=== PATIENT | female | born 1995 | race Hispanic/Latino ===

== ENCOUNTER 2018-04-03 11:11 | Emergency (ER) | payer OTHER ==
[2018-04-03 11:51] LABS: Urine Bacteria >50 /HPF (<20); Urine Culture Reflex Order REFLEXED; Urine RBC <5 /HPF (NONE SEEN)
[2018-04-03] MEDS ORDERED: NA CHLORIDE 0.9% 1,000 ML ONE (11:53)
[2018-04-03 12:08] LABS: Absolute Lymphocytes (CBC) 1.5 K/uL (0.7-4.9); Absolute Monocytes 0.8 K/uL (0.1-1.3); Basophils % 0.3 % (0-1.3); Eosinophils % 0.1 % (0-4.4); Hematocrit 44.3 % (36.0-45.0); Lymphocytes % 10.6 % (15.3-44.8); MCH 33.1 pg (27.0-35.0); MPV 8.1 fL (7.6-11.3); Monocytes % 5.6 % (3.3-12.3); RBC Red Blood Cell Count 4.57 M/uL (3.86-4.86)
[2018-04-03 12:20] LABS: Albumin 4.3 g/dL (3.4-5.0); Bilirubin Direct 0.2 mg/dL (0-0.2); Bilirubin Total 0.7 mg/dL (0.2-1.0); Potassium 3.8 mmol/L (3.5-5.1); Protein, Total 8.2 g/dL (6.4-8.2)
--- NOTE | 2018-04-03 12:56 | RAD REPORT ---
EXAM DESCRIPTION: CTAbdomen Pelvis W Contrast - 04/03/2018 12:40 pm CLINICAL HISTORY: Abdominal pain. FLANK PAIN COMPARISON: CT ABD PELVIS W CONTRAST dated 08/03/2011 TECHNIQUE: Biphasic CT imaging of the abdomen and pelvis was performed with 100 ml non-ionic IV cont rast. All CT scans are performed using dose optimization technique as appropriate and may include automated exposure control or mA/KV adjustment according to patient size. FINDINGS: The lung bases are clear. The liver, spleen, pancreas, adrenal glands and kidneys are within normal limits. No bowel obstruction, free air, free fluid or abscess. The appendix is normal. No evidence of signi ficant lymphadenopathy. No suspicious bony findings. IUD noted in the uterus. Prominent pelvic veins are noted on the left with enlargement of left gonada l vein. IMPRESSION: No acute intra-abdominal or pelvic finding. Prominent pelvic veins on the left can be seen in pelvic congestion syndrome.
[2018-04-03] MEDS ORDERED: CEFTRIAXONE/SWI 1gm 1 GM/10 ML SYR ONE (13:21)
--- NOTE | 2018-04-03 13:30 | ER ---
Nurse's Notes [facility] Name: Danielle Ahn Age: 22 yrs Sex: Female : 1995 Arrival Date: 04/03/2018 Time: 11:14 Bed 13 Private MD: Diagnosis: Urinary tract infection, site not specified Presentation: 04/03 11:24 Presenting complaint: Patient states: last night i started having R flank pain , i knew hj i have kidney infection coz i usually have it; denies fever and chills; denies N/V;. Transition of care: patient was not received from another setting of care. Onset of symptoms was April 03, 2018. Risk Assessment: Do you want to hurt yourself or someone else? Patient reports no desire to harm self or others. Initial Sepsis Screen: Does the patient meet any 2 criteria? No. Patient's initial sepsis screen is negative. Does the patient have a suspected source of infection? No. Patient's initial sepsis screen is negative. Care prior to arrival: None. 11:24 Method Of Arrival: Ambulatory 11:24 Acuity: EVELIO 4 Triage Assessment: 11:26 General: Appears in no apparent distress. uncomfortable, Behavior is calm, cooperative, hj appropriate for age. Pain: Complains of pain in R flank. Musculoskeletal: Circulation, motion, and sensation intact. Capillary refill < 3 seconds. 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 - Social history:: Smoking status: Patient/guardian denies using tobacco, Patient uses alcohol, occasionally. - Ebola Screening: : Patient negative for fever greater than or equal to 101.5 degrees Fahrenheit, and additional compatible Ebola Virus Disease symptoms Patient denies exposure to infectious person Patient denies travel to an Ebola-affected area in the 21 days before illness onset. Screenin:26 Abuse screen: Denies threats or abuse. Denies injuries from another. Nutritional hj screening: No deficits noted. Tuberculosis screening: No symptoms or risk factors identified. Fall Risk None identified. Assessment: 11:26 General: Appears in no apparent distress. uncomfortable, slender, Behavior is calm, hj cooperative, appropriate for age. Pain: Complains of pain in R flank, R lower abdomen. Neuro: Level of Consciousness is awake, alert, obeys commands, Oriented to person, place, time, situation, Appropriate for age. Cardiovascular: Capillary refill < 3 seconds Patient's skin is warm and dry. Respiratory: Airway is patent Respiratory effort is even, unlabored, Respiratory pattern is regular, symmetrical. GI: Reports lower abdominal pain. : Reports burning with urination. EENT: No signs and/or symptoms were reported regarding the EENT system. Derm: No signs and/or symptoms reported regarding the dermatologic system. Musculoskeletal: No signs and/or symptoms reported regarding the musculoskeletal system. 12:13 Reassessment: awaiting CT:. hj 12:34 Reassessment: wheeled to CT;. Vital Signs: 11:27 BP 121 / 65; Pulse 109; Resp 18; Temp 99.0(O); Pulse Ox 100% ; Weight 51.26 kg; Height 5 ft. 2 in. (157.48 cm); Pain 7/10; 13:00 BP 107 / 62; Pulse 81; Resp 18; Pulse Ox 99% on R/A; hj 11:27 Body Mass Index 20.67 (51.26 kg, 157.48 cm) ED Course: 11:14 Patient arrived in ED. tw3 11:18 Almas Goetz, RN is Primary Nurse. hj 11:20 Urine collected: clean catch specimen, clear, nichol colored, Amount Voided: 120mL. jp3 11:25 Triage completed. hj 11:27 Arm band placed on right wrist. hj 11:27 Patient has correct armband on for positive identification. Bed in low position. Call light in reach. Side rails up X 1. 11:28 Quinn Foy NP is PHCP. pm1 11:28 Juan Garnica MD is Attending Physician. pm1 11:38 Urine Culture Sent. jp3 11:38 Urine Microscopic Only Sent. jp3 11:44 Radiology exam delayed due to lab results not completed at this time. (BUN/Creatinine) vr test not completed at this time. 11:45 Initial lab(s) drawn, by me, sent to lab. jp3 11:52 Inserted saline lock: 22 gauge in right antecubital area, using aseptic technique. jp3 Blood collected. 11:52 Urine Culture Sent. jp3 11:52 CBC with Diff Sent. jp3 11:52 Basic Metabolic Panel Sent. jp3 11:52 Creatinine for Radiology Sent. jp3 11:52 Hepatic Function Sent. jp3 11:52 Lipase Sent. jp3 12:20 Radiology exam delayed due to lab results not completed at this time. (BUN/Creatinine). vr 12:27 Radiology exam delayed due to test not completed at this time. vr 12:[address] via wheelchair. vr 12:41 CT completed. Patient tolerated procedure well. Patient moved back from CT. vr 12:41 CT Abd/Pelvis - W/Contrast: IV contrast only In Process Unspecified. EDMS 13:35 No provider procedures requiring assistance completed. IV discontinued, intact, hj bleeding controlled, No redness/swelling at site. Pressure dressing applied. Administered Medications: 11:49 Drug: NS 0.9% 1000 ml Route: IV; Rate: 1000 ml; Site: right antecubital; hj 13:00 Follow up: IV Status: Completed infusion; IV Intake: 1000ml hj 13:09 Drug: Rocephin 1 grams Route: IV; Rate: calculated rate; Site: right antecubital; hj 13:37 Follow up: IV Status: Completed infusion hj Intake: 13:00 IV: 1000ml; Total: 1000ml. Outcome: 13:30 Discharge ordered by MD. pm1 13:36 Discharged to home ambulatory. 13:36 Condition: stable 13:36 Discharge instructions given to patient, Instructed on discharge instructions, follow up and referral plans. medication usage, Demonstrated understanding of instructions, follow-up care, medications, Prescriptions given X 2. 13:43 Patient left the ED. hj Addendum: 04/06/2018 07:16 Addendum: Culture Results: Positive urine culture. No further action required. Bacteria i w sensitive to prescribed antibiotic. Signatures: Dispatcher [employer] EDMS Julia Jimenez RN RN iw Davis, Victoria vr Almas Goetz RN RN hj Marinas, Patrick, ETHAN BLADDER CHANGER pm1 Jaylen, Blank tw3 Walker Freeman jp3 Corrections: (The following items were deleted from the chart) 04/03 13:37 13:36 Discharge instructions given to patient, Instructed on discharge instructions, hj follow up and referral plans. medication usage, Demonstrated understanding of instructions, follow-up care, medications, hj
--- NOTE | 2018-04-03 13:31 | EDPHYS ---
Physician Documentation [facility] Name: Danielle Ahn Age: 22 yrs Sex: Female : 1995 Arrival Date: 04/03/2018 Time: 11:14 Bed 13 Private MD: ED Physician Juan Garnica HPI: 04/03 12:00 This 22 yrs old Female presents to ER via Ambulatory with complaints of Back pm1 Pain. 12:00 The patient presents with pain that is acute. The symptoms are located in the right low pm1 back. Onset: The symptoms/episode began/occurred last night. The pain radiates to the right lower quadrant. Associated signs and symptoms: Pertinent positives: abdominal pain, Pertinent negatives: chest pain, dysuria, fever, headache, nausea, vomiting, Diarrhea. The problem was sustained Foul odor urine. Believes that she has a UTI. Modifying factors: The patient symptoms are alleviated by nothing, the patient symptoms are aggravated by nothing. Severity of symptoms: in the emergency department the symptoms are actually worse. The patient has experienced similar episodes in the past, a few times. 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 - Social history:: Smoking status: Patient/guardian denies using tobacco, Patient uses alcohol, occasionally. - Ebola Screening: : Patient negative for fever greater than or equal to 101.5 degrees Fahrenheit, and additional compatible Ebola Virus Disease symptoms Patient denies exposure to infectious person Patient denies travel to an Ebola-affected area in the 21 days before illness onset. ROS: 12:00 Constitutional: Negative for fever, chills, and weight loss, Eyes: Negative for injury, pm1 pain, redness, and discharge, ENT: Negative for injury, pain, and discharge, Neck: Negative for injury, pain, and swelling, Cardiovascular: Negative for chest pain, palpitations, and edema, Respiratory: Negative for shortness of breath, cough, wheezing, and pleuritic chest pain. 12:00 : Negative for injury, bleeding, discharge, and swelling, MS/Extremity: Negative for injury and deformity, Skin: Negative for injury, rash, and discoloration. 12:00 Neuro: Negative for headache, weakness, numbness, tingling, and seizure. 12:00 Abdomen/GI: Positive for abdominal pain, of the right lower quadrant, Negative for nausea, vomiting, and diarrhea. 12:00 Back: Positive for flank pain, on the right. Exam: 12:00 Constitutional: This is a well developed, well nourished patient who is awake, alert, pm1 and in no acute distress. Head/Face: Normocephalic, atraumatic. Eyes: Pupils equal round and reactive to light, extra-ocular motions intact. Lids and lashes normal. Conjunctiva and sclera are non-icteric and not injected. Cornea within normal limits. Periorbital areas with no swelling, redness, or edema. ENT: Nares patent. No nasal discharge, no septal abnormalities noted. Tympanic membranes are normal and external auditory canals are clear. Oropharynx with no redness, swelling, or masses, exudates, or evidence of obstruction, uvula midline. Mucous membranes moist. Neck: Trachea midline, no thyromegaly or masses palpated, and no cervical lymphadenopathy. Supple, full range of motion without nuchal rigidity, or vertebral point tenderness. No Meningismus. Chest/axilla: Normal chest wall appearance and motion. Nontender with no deformity. No lesions are appreciated. Cardiovascular: Regular rate and rhythm with a normal S1 and S2. No gallops, murmurs, or rubs. Normal PMI, no JVD. No pulse deficits. Respiratory: Lungs have equal breath sounds bilaterally, clear to auscultation and percussion. No rales, rhonchi or wheezes noted. No increased work of breathing, no retractions or nasal flaring. 12:00 Skin: Warm, dry with normal turgor. Normal color with no rashes, no lesions, and no evidence of cellulitis. MS/ Extremity: Pulses equal, no cyanosis. Neurovascular intact. Full, normal range of motion. 12:00 Abdomen/GI: Inspection: abdomen appears normal, Bowel sounds: normal, Palpation: soft, mild abdominal tenderness, in the right lower quadrant. 12:00 Back: pain, that is mild, of the right low back, normal spinal alignment noted. 12:00 Neuro: Orientation: is normal, Motor: is normal, moves all fours, Sensation: is normal, no obvious gross deficits. Vital Signs: 11:27 BP 121 / 65; Pulse 109; Resp 18; Temp 99.0(O); Pulse Ox 100% ; Weight 51.26 kg; Height 5 ft. 2 in. (157.48 cm); Pain 7/10; 13:00 BP 107 / 62; Pulse 81; Resp 18; Pulse Ox 99% on R/A; hj 11:27 Body Mass Index 20.67 (51.26 kg, 157.48 cm) MDM: 11:29 Patient medically screened. pm1 13:29 Data reviewed: vital signs. Data interpreted: Pulse oximetry: on room air is 99 %. pm1 Interpretation: normal. Counseling: I had a detailed discussion with the patient and/or guardian regarding: the historical points, exam findings, and any diagnostic results supporting the discharge/admit diagnosis, lab results, radiology results, the need for outpatient follow up, to return to the emergency department if symptoms worsen or persist or if there are any questions or concerns that arise at home. 04/03 11:37 Order name: Basic Metabolic Panel; Complete Time: 13:08 pm1 04/03 11:37 Order name: CBC with Diff; Complete Time: 13:08 pm1 04/03 11:37 Order name: Creatinine for Radiology; Complete Time: 13:08 pm1 04/03 11:37 Order name: Hepatic Function; Complete Time: 13:08 pm1 04/03 11:37 Order name: Lipase; Complete Time: 13:08 pm1 04/03 11:37 Order name: Urine Microscopic Only; Complete Time: 11:52 pm1 04/03 11:18 Order name: Urine Dipstick-Ancillary (obtain specimen); Complete Time: 11:38 04/03 11:18 Order name: Urine Test (obtain specimen); Complete Time: 11:38 04/03 11:37 Order name: CT Abd/Pelvis - W/Contrast: IV contrast only; Complete Time: 13:08 pm1 04/03 11:37 Order name: Urine Culture pm1 04/03 11:41 Order name: Urine Dipstick--Ancillary (enter results) eb 04/03 11:41 Order name: Urine --Ancillary (enter results) 04/03 11:37 Order name: IV Saline Lock; Complete Time: 11:49 pm1 04/03 11:37 Order name: Labs collected and sent; Complete Time: 11:50 pm1 Administered Medications: 11:49 Drug: NS 0.9% 1000 ml Route: IV; Rate: 1000 ml; Site: right antecubital; hj 13:00 Follow up: IV Status: Completed infusion; IV Intake: 1000ml hj 13:09 Drug: Rocephin 1 grams Route: IV; Rate: calculated rate; Site: right antecubital; hj 13:37 Follow up: IV Status: Completed infusion hj Disposition: 04/04 09:52 Co-signature as Attending Physician, Juan Garnica MD. Disposition: 04/03/18 13:30 Discharged to Home. Impression: Urinary tract infection, site not specified. - Condition is Stable. - Discharge Instructions: Urinary Tract Infection, Adult. - Prescriptions for Bactrim DS 800- 160 mg Oral Tablet - take 1 tablet by ORAL route every 12 hours for 10 days; 20 tablet. Tylenol- Codeine #3 300-30 mg Oral Tablet - take 2 tablets by ORAL route every 6 hours As needed; 20 tablet. - Medication Reconciliation Form, Thank You Letter, Antibiotic Education, Prescription Opioid Use form. - Follow up: Emergency Department; When: As needed; Reason: Worsening of condition. Follow up: Private Physician; When: 2 - 3 days; Reason: Recheck today's complaints, Continuance of care, Re-evaluation by your physician. - Problem is new. - Symptoms have improved. Signatures: Dispatcher [employer] EDMS Almas Goetz RN RN hj Quinn Foy, BOAT WRAPPER BOAT WRAPPER pm1 Juan Garnica MD MD Corrections: (The following items were deleted from the chart) 04/03 13:43 13:30 04/03/2018 13:30 Discharged to Home. Impression: Urinary tract infection, site hj not specified. Condition is Stable. Forms are Medication Reconciliation Form, Thank You Letter, Antibiotic Education, Prescription Opioid Use. Follow up: Emergency Department; When: As needed; Reason: Worsening of condition. Follow up: Private Physician; When: 2 - 3 days; Reason: Recheck today's complaints, Continuance of care, Re-evaluation by your physician. Problem is new. Symptoms have improved. pm1
[2018-04-03 13:54] VITALS: TEMP 99
[2018-04-03 13:55] VITALS: BP 107/62; O2SAT 99
[2018-04-03 14:26] LABS: Urine Blood TRACE (NEG); Urine Glucose NEGATIVE (NEG); Urine Protein 2+ (NEG); Urine Specific Gravity 1.015 (1.005-1.030); Urine pH 8.5 (5.0-7.0)
== END 2018-04-03 13:43 | disposition home or self-care (01) ==
LOC: ER 11:11
DX: N39.0 Urinary tract infection, site not specified (principal)
CPT/HCPCS: 36415; 74177; 80048; 80076; 81003; 81015; 81025; 83690; 85025; 87077; 87086; 87088; 87186; 96361; 96365; 99284; J0696; J7030; Q9967

== ENCOUNTER 2021-08-23 08:17 | Emergency (ER) | payer OTHER ==
--- OUTSIDE RECORDS SUMMARY | 2021-08-23 08:22 | XMS REPORT | Continuity of Care Document ---
:[address] [facility] t Address [address] [place] [address] Care Team Providers Name Role Phone Asif Allen Attending Clinician Unavailable PEDRITO LOBO Attending Clinician Unavailable Pedrito Lobo MD Attending Clinician Doctor Unassigned, Name Attending Clinician Unavailable Bela YANEZ Attending Clinician BELA Attending Clinician Unavailable Lucía WETZEL Attending Clinician Payers Payer Name Policy Type Policy Number Effective Date Expiration Date Mario BLISS II [id number] 2015 00:00:00 Problems Condition Condition Condition Status Onset Resolution Last Treating Co mments Source Name Details Category Date Date Treatment Clinician Date Presence Presence Disease Active Unive rs of 52 mg of 52 mg 1-11 ity of [place] trel-relea trel-relea 00 Me dical sing sing Branch intrauteri intrauteri ne device ne device (IUD) (IUD) Hemangioma Hemangioma Disease Active U nivers , genital , genital 8- ity of 00:00: [place] 00 Medical Branch Abscess of Abscess of Disease Active Overview : Univers vulva vulva 5-03 Added ity of 00:00: automatic [place] 00 ally from Medical request Branch for surgery [id number] Labial Labial Disease Active Overview: [facility] abscess abscess 5-02 Recurrent ity o f 00:00: left [place] 00 sided Medical labial Branch abscess s/p I&D twice. Molluscum Molluscum Disease Active Overview: [facility] contagiosu contagiosu 4-September 02, ity of asif gold 00:00: 2019 - [place] 00 Vulvar Medical molluscm Branch contagios um s/p Zymaderm with resolutio n Vulvar Vulvar Disease Active Overview: [facility] ulcer ulcer 3-05 Resolved ity of 00:00: spontaneo 00 usly. HSV Medical testing Branch negative. Allergies, Adverse Reactions, Alerts Allergy Allergy Status Severity Reaction(s) Onset Inactive Treating Comm ents Source Name Type Date Date Clinician NO KNOWN Drug Active [facility] ALLERGIE Class ity of S [facility] Social History Social Habit Start Date Stop Date Quantity Comments Source Exposure to Not sure [facility] SARS-CoV-2 [facility] (event) [place] Sex Assigned At Universit y of [facility] Alcohol intake 2020-05-28 2020-05-28 Current drinker Unive rsity of 00:00:00 00:00:00 of alcohol [facility] (finding) Branch Tobacco use and 2020-05-28 2020-05-28 Never used Universit y of exposure 00:00:00 00:00:00 [facility] Alcohol Comment 2018-04-28 2018-04-28 socially Universit y of 00:00:00 00:00:00 [facility] Smoking Status Start Date Stop Date Source Never smoker [facility] [place] Medications Ordered Filled Start Stop Current Ordering Indication Dosage Frequency Signature Comments Components Source Medication Medication Date Date Medication? Clinician (SIG) Name Name levonorgest 2020- No 1{devic Un natty reL 05-29 e} ity of (MIRENA) 00:15: 23:10 [place] IUD 1 00 :00 Police Aide Branch levonorgest 2020- No 1{devic 1 Device, Univers reL 05-29 e} Intrauteri ity of (MIRENA) 00:15: 23:10 ne, ONCE, Sukumar as IUD 1 00 :00 1 dose, Police Aide Mon Branch 05/28/20 at 1815, Routine levonorgest 2020- No 1{devic Un natty reL 05-29 e} ity of (MIRENA) 00:15: 23:10 [place] IUD 1 00 :00 Police [employer] Branch levonorgest 2020- No 1{devic 1 Device, Univers reL 05-29 e} Intrauteri ity of (MIRENA) 00:15: 23:10 ne, ONCE, [place] as IUD 1 00 :00 1 dose, Police Aide Randall Lyons 05/28/20 at 1815, Routine miSOPROStoL 2019-05 Yes Take one Un natty 200 mcg 2-07 tablet ity of tablet 00:00: night [place] 00 before Medical procedure, Branch then take one tablet morning of procedure miSOPROStoL 2020- Yes Take one Un natty 200 mcg 2-07 tablet ity of tablet 00:00: night [place] 00 before Medical procedure, Branch then take one tablet morning of procedure miSOPROStoL 2020- Yes Take one Un natty 200 mcg 2-07 tablet ity of tablet 00:00: night [place] 00 before Medical procedure, Branch then take one tablet morning of procedure miSOPROStoL 2019- Yes Take one Un natty 200 mcg 2-07 tablet ity of tablet 00:00: night [place] 00 before Medical procedure, Branch then take one tablet morning of procedure miSOPROStoL 2020- Yes Take one Un natty 200 mcg 2-07 tablet ity of tablet 00:00: night [place] 00 before Medical procedure, Branch then take one tablet morning of procedure miSOPROStoL 2020- Yes Take one Un natty 200 mcg 2-07 tablet ity of tablet 00:00: night [place] 00 before Medical procedure, Branch then take one tablet morning of procedure miSOPROStoL 2020- Yes Take one Un natty 200 mcg 2-07 tablet ity of tablet 00:00: night [place] 00 before Medical procedure, Branch then take one tablet morning of procedure Omeprazole Omeprazole 2019- Yes Donnell [address] [facility] 01-16 [facility] 30 minutes [facility] 00[facility] before [facility] morning l meal Outpat[facility] Clinics levonorgest Yes 1{devic 1 Device Univers rel 8-22 e} by ity of (MIRENA) 20 13:22: Intrauteri [place] mcg/24 hr 41 ne route Medica l (5 years) once now. Branc h IUD levonorgest 2019-0 Yes 1{devic 1 Device Univers rel 8-22 e} by ity of (MIRENA) 20 13:22: Intrauteri [place] mcg/24 hr 41 ne route Medica l (5 years) once now. Branc h IUD levonorgest 2019-0 Yes 1{devic 1 Device Univers rel 8-22 e} by ity of (MIRENA) 20 13:22: Intrauteri [place] mcg/24 hr 41 ne route Medica l (5 years) once now. Branc h IUD levonorgest 2019-0 Yes 1{devic 1 Device Univers rel 8-22 e} by ity of (MIRENA) 20 13:22: Intrauteri [place] mcg/24 hr 41 ne route Medica l (5 years) once now. Branc h IUD levonorgest 2019-0 Yes 1{devic 1 Device Univers rel 8-22 e} by ity of (MIRENA) 20 13:22: Intrauteri [place] mcg/24 hr 41 ne route Medica l (5 years) once now. Branc h IUD levonorgest 2019-0 Yes 1{devic 1 Device Univers rel 8-22 e} by ity of (MIRENA) 20 13:22: Intrauteri [place] mcg/24 hr 41 ne route Medica l (5 years) once now. Branc h IUD levonorgest 2019-0 Yes 1{devic 1 Device Univers rel 8-22 e} by ity of (MIRENA) 20 13:22: Intrauteri [place] mcg/24 hr 41 ne route Medica l (5 years) once now. Branc h IUD levonorgest 2019-0 Yes 1{devic 1 Device Univers rel 8-22 e} by ity of (MIRENA) 20 13:22: Intrauteri [place] mcg/24 hr 41 ne route Medica l (5 years) once now. Branc h IUD levonorgest 2019-0 Yes 1{devic 1 Device Univers rel 8-22 e} by ity of (MIRENA) 20 13:22: Intrauteri [place] mcg/24 hr 41 ne route Medica l (5 years) once now. Branc h IUD levonorgest 2019-0 Yes 1{devic 1 Device Univers rel 8-22 e} by ity of (MIRENA) 20 13:22: Intrauteri [place] mcg/24 hr 41 ne route Medica l (5 years) once now. Branc h IUD levonorgest Yes 1{devic 1 Device Univers rel 8-22 e} by ity of (MIRENA) 20 13:22: Intrauteri [place] mcg/24 hr 41 ne route Medica l (5 years) once now. Branc h IUD levonorgest Yes 1{devic 1 Device Univers rel 8-22 e} by ity of (MIRENA) 20 13:22: Intrauteri [place] mcg/24 hr 41 ne route Medica l (5 years) once now. Branc h IUD ibuprofen Yes [id number] 800mg Take 1 Univers 800 mg 5-17 tablet by ity of tablet 00:00: mouth [place] 00 every 8 Medical (eight) Branch hours as needed for Temp > 38.5 C (PAIN). ibuprofen 2019- No [id number] 800mg Take 1 Univers 800 mg 5-17 07-30 tablet by ity of tablet 00:00: 00:00 mouth [place] 00 :00 every 8 Medical (eight) Branch hours as needed for Temp > 38.5 C (PAIN). ibuprofen 2019- No [id number] 800mg Take 1 Univers 800 mg 5-17 07-30 tablet by ity of tablet 00:00: 00:00 mouth [place] 00 :00 every 8 Medical (eight) Branch hours as needed for Temp > 38.5 C (PAIN). levonorgest Yes 1{devic 1 Device Univers rel 5-06 e} by ity of (MIRENA) 20 20:43: Intrauteri [place] mcg/24 hr 52 ne route Medica l (5 years) once now. Branc h IUD levonorgest 2018- Yes 1{devic 1 Device Univers rel 5-06 e} by ity of (MIRENA) 20 20:43: Intrauteri [place] mcg/24 hr 52 ne route Medica l (5 years) once now. Branc h IUD levonorgest 2018-0 Yes 1{devic 1 Device Univers rel 5-06 e} by ity of (MIRENA) 20 20:43: Intrauteri [place] mcg/24 hr 52 ne route Medica l (5 years) once now. Branc h IUD amoxicillin 2018- Yes [id number] 1{tbl} Take 1 Univers -clavulanat 5-02 tablet by ity of e 00:00: mouth 2 [place] (AUGMENTIN) 00 (two) Medical 875-125 mg times Branch per tablet daily. amoxicillin 2019- No [id number] 1{tbl} Take 1 Univers -clavulanat 5-02 07-30 tablet by it y of e 00:00: 00:00 mouth 2 [place] (AUGMENTIN) 00 :00 (two) Medical 875-125 mg times Branch per tablet daily. amoxicillin 2019- No [id number] 1{tbl} Take 1 Univers -clavulanat 5-02 07-30 tablet by it y of e 00:00: 00:00 mouth 2 [place] (AUGMENTIN) 00 :00 (two) Medical 875-125 mg times Branch per tablet daily. lidocaine-p 2019 Yes [id number] Apply to Univers rilocaine 3-05 affected ity of 2.5-2.5 % 00:00: [place] 2-3 [place] cream 00 times a Medical day as Branch needed lidocaine-p 2019- Yes [id number] Apply to Univers rilocaine 3-05 affected ity of 2.5-2.5 % 00:00: [place] 2-3 [place] cream 00 times a Medical day as Branch needed lidocaine-p 2019- Yes [id number] Apply to Univers rilocaine 3-05 affected ity of 2.5-2.5 % 00:00[place] 2-3 [place] cream 00 times a Medical day as Branch needed lidocaine-p 2019- 2019- No [id number] Apply to Univers rilocaine 3-05 - affected ity o f 2.5-2.5 % 00:00: 00:00 area 2-3 [place] as cream 00 :00 times a Medical day as Branch needed lidocaine-p 2019- 2019- No [id number] Apply to Univers rilocaine 3-05 - affected ity o f 2.5-2.5 % 00:00: 00:00 area 2-3 Sukumar as cream 00 :00 times a Medical day as Branch needed Tylenol Tylenol Yes Donnell not [facility] Cold Cold [place] defined [facility] Advil Advil Yes Donnell not [facility] Cold/Sinus Cold/Sinus [facility] defined [facility] NyQuil NyQuil Yes Donnell not [facility] defined [facility] Vanacof DM Vanacof DM Yes Donnell [address] [facility] Vicks Vapor Vicks Vapor Yes Donnell not [facility] defined [facility] DayQuil DayQuil Yes Donnell not [facility] Multi-Sympt Multi-Sympt [place] defined [facility] Vital Signs Vital Name Observation Time Observation Value Comments Source Heart rate 2020-05-28 21:45:00 85 /min [facility] Body temperature 2020-05-28 21:45:00 36.78 [facility] Respiratory rate 2020-05-28 21:45:00 16 /min [facility] Body height 2020-05-28 21:45:00 157.5 cm [facility] Body weight 2020-05-28 21:45:00 58.423 kg [facility] BMI 2020-05-28 21:45:00 23.56 kg/m2 [facility] Systolic blood 2020-05-28 21:45:00 116 mm[Hg] Univer sity of pressure [facility] Diastolic blood 2020-05-28 21:45:00 76 mm[Hg] Unive rsity of pressure [facility] Systolic blood 2019-11-18 18:45:00 109 mm[Hg] Univer sity of pressure [facility] Diastolic blood 2019-11-18 18:45:00 66 mm[Hg] Unive rsity of pressure [facility] Heart rate 2019-11-18 18:45:00 91 /min [facility] Body temperature 2019-11-18 18:45:00 36.78 [facility] Respiratory rate 2019-11-18 18:45:00 18 /min [facility] Body height 2019-11-18 18:45:00 157.5 cm [facility] Body weight 2019-11-18 18:45:00 56.246 kg [facility] BMI 2019-11-18 18:45:00 22.68 kg/m2 [facility] Systolic blood 2019-11-18 18:45:00 109 mm[Hg] Univer sity of pressure [facility] Diastolic blood 2019-11-18 18:45:00 66 mm[Hg] Unive rsity of pressure [facility] Heart rate 2019-11-18 18:45:00 91 /min [facility] Body temperature 2019-11-18 18:45:00 36.78 [facility]nes [facility] [place] [facility] Respiratory rate 2019-11-18 18:45:00 18 /min [facility] Body height 2019-11-18 18:45:00 157.5 cm [facility] Body weight 2019-11-18 18:45:00 56.246 kg [facility] BMI 2019-11-18 18:45:00 22.68 kg/m2 [facility] Systolic blood 2019-01-06 13:22:00 115 mm[Hg] Univer sity of pressure [facility] Diastolic blood 2019-01-06 13:22:00 75 mm[Hg] Unive rsity of pressure [facility] Heart rate 2019-01-06 13:22:00 82 /min [facility] Body temperature 2019-01-06 13:22:00 36.83 Ynes [facility] Respiratory rate 2019-01-06 13:22:00 18 /min [facility] [place] [facility] Body weight 2019-01-06 13:22:00 55.43 kg [facility] [place] [facility] BMI 2019-01-06 13:22:00 22.35 kg/m2 [facility] [place] [facility] Systolic blood 2018-12-14 16:15:00 107 mm[Hg] Univer sity of pressure [place] [facility] Diastolic blood 2018-12-14 16:15:00 65 mm[Hg] Unive rsity of pressure [facility] Heart rate 2018-12-14 16:15:00 86 /min [facility] Body temperature 2018-12-14 16:15:00 36.78 Y[facility] Respiratory rate 2018-12-14 16:15:00 18 /min [facility] Body height 2018-12-14 16:15:00 157.5 cm [facility] Body weight 2018-12-14 16:15:00 56.7 kg [facility] BMI 2018-12-14 16:15:00 22.86 kg/m2 [facility] Procedures Procedure Date / Time Performed Performing Clinician Sourc e POCT TEST 2020-05-28 21:46:00 Camacho Lobo [facility] 2020-05-28 06:01:00 Doctor Unassigned, No [facility] ASSIGNMENT OF BENEFITS 2019-11-18 18:35:13 Doctor Unassigned, No [facility] PATIENT FINANCIAL 2018-12-14 16:07:41 Doctor Unassigned, No [facility] POLICY [facility] Encounters Start End Encounter Admission Attending Care Care Encounter Source Date/Time Date/Time Type Type Clinicians Facility Department ID 2021-06-12 [facility] 13:[facility]38 [facility]nell [id number] [facility] 2021-06-12 Outpatient [place], [facility] 13:[facility]19 Donnell [id number] [facility] 2021-06-12 Outpatient [place], [facility] 11:42:23 Donnell [id number] [facility] 2020-06-26 2020-06-26 Outpatient R CAMACHO LOBO [facility] [id number] Univers 15:00:00 15:00:00 [id number] [facility] 2020-06-26 2020-06-26 Outpatient R CAMACHO LOBO [facility] [id number] Univers 15:00:00 15:00:00 [facility] 2020-05-28 2020-05-28 Office Camacho Lobo [facility] [id number] Univers 15:02:17 16:45:29 Visit Cam Denae [id number] i [place] [id number] [place] [phone] Wi dical nal [address] [place] [address] 2020-05-28 2020-05-28 Outpatient R CAMACHO LOBO [facility] [id number] Univers 15:00:00 15:00:00 [id number] ity [facility] 2020-05-28 2020-05-28 Outpatient R YAMIL CAMACHO [facility] [id number] Univers 15:00:00 15:00:00 ity [facility] 2020-05-28 2020-05-28 Orders Doctor JORDANA [id number] Univers 00:00:00 00:00:00 Only Unassigned, ADENIKE [id number] ity of [place] [facility] [id number] Sukumar as [phone] [address] 2020-05-26 2020-05-26 Refill Doctor [facility] [id number] Univers 00:00:00 00:00:00 Unassigned, [place] [id number] [place] [id number] [phone] Wi dical nal [address] [place] [address] 2020-05-26 2020-05-26 Refill Doctor [facility] [id number] Univers 00:00:00 00:00:00 Unassigned, [place] [id number] [place] [id number] [phone] Wi dical nal [address] [place] [address] 2020-05-03 2020-05-03 Outpatient CAMACHO QUESADA [facility] [id number] 2Q-20 Univers 14:00:00 14:00:00 [id number] ity of [facility] 2020-05-03 2020-05-03 Outpatient Karo LOBO [facility] [id number] Univers 14:00:00 14:00:00 ity of [facility] 2020-05-03 2020-05-03 Outpatient STLMLC [facility]MLC [id number] [facility] 00:00:00 00:00:00 [facility] 2020-04-23 2020-04-[address] [facility] [id number] Univers 15:45:00 16:15:00 Visit Amber Philippe [id number] [id number] [phone] [address] 2020-04-23 2020-04-23 Outpatient R BELA [facility] [id number] 2Q-20 Univers 15:45:00 15:45:[id number] [place] [address] 2020-04-23 2020-04-23 Outpatient R BELA [facility] [id number] Univers 15:45:00 15:45:00 [facility] 2020-02-07 2020-02-[address] [facility] [id number] [facility] 00:00:00 00:00:00 [facility] 2020-01-31 2020-01-31 [facility] [id number] [facility] [address] 09:50:00 09:50:00 t [employer] [facility] Medicine Outpati ent Clinics 2020-01-17 2020-01-17 Out[facility] [id number] [facility] [address] 10:30:00 10:30:00 t [employer] [facility] 2019-11-18 2019-11-18 [facility] [id number] 13:35:40 13:55:31 Visit Amber Philippe [id number] [place] [id number] Professio [phone] [address] 2019-11-18 2019-11-[address] [facility] [id number] [facility] 13:35:40 13:55:31 Visit Amber Philippe [id number] [id number] [phone] [address] 2019-11-18 2019-11-18 Outpatient R BELA, [facility] [id number] 2Q-[id number] Univers 13:30:00 13:30:00 AMBER [id number] [facility] 2019-11-18 2019-11-18 Outpatient Karo CRAMER [facility] [id number] Univers 13:30:00 13:30:00 AMBER [facility] 2019-11-18 2019-11-18 Orders Doctor SILVEIRA [id number] Univers 00:00:00 00:00:00 Only Unassigned, ADENIKE [id number] ity of [place] [facility] [id number] Sukumar as [phone] [address] 2019-01-06 2019-01-06 Office Lucía [facility] [id number] Univers 08:13:27 08:38:56 Visit Keanu Philippe [id number] i [id number] [phone] [address] 2018-12-14 2018-12-14 Office Lobo Camacho [facility] [id number] Univers 11:10:56 11:29:33 Visit Pedrito Philippe [id number] i [place] [id number] [phone] [address] 2018-12-14 2018-12-14 Orders Doctor SILVEIRA [id number] Univers 00:00:00 00:00:00 Only Unassigned, ADENIKE [id number] ity of [place] [facility] [id number] Sukumar as [phone] [address] Results Test Description Test Time Test Comments Results Result Comments Source POCT TEST 2020-05-28 21:46:00 Test Item Value Reference Range Interpretation Comme nts POCT PREG (test code = 1605) Negative On board controls acceptable with C Yes Line (test code = 3574) POCT PREG LOT # (test code = 3575) POCT PREG TEST DATE (test code = 3576) DEANA (test code = DEANA) accurate development and interpretation of all internal controls [id number] 21:46:00 Test Item Value Reference Range Interpretation Comments POCT PREG (test code Negative = 1605) On board controls Yes acceptable with C Line (test code = 3574) POCT PREG LOT # (test code = 3575) POCT PREG TEST DATE (test code = 3576) DEANA (test code = DEANA) accurate development and interpretation of all internal controls [facility]
[2021-08-23 08:52] LABS: Urine Blood Negative (Negative); Urine Glucose Negative (Negative); Urine Protein Negative (Negative); Urine pH 7.5 (5.0-7.0)
[2021-08-23 08:54] LABS: Hematocrit 42.9 % (36.0-45.0); Lymphocytes % 35.3 % (15.3-44.8); MPV 8.7 fL (7.6-11.3); RBC Red Blood Cell Count 4.43 M/uL (3.86-4.86)
[2021-08-23 09:15] LABS: Albumin 3.9 g/dL (3.4-5.0); Bilirubin Total 0.4 mg/dL (0.2-1.0); Potassium 3.6 mmol/L (3.5-5.1); Protein, Total 7.3 g/dL (6.4-8.2)
[2021-08-23] MEDS ORDERED: NA CHLORIDE 0.9% 1,000 ML ONE (09:33)
--- NOTE | 2021-08-23 09:42 | RAD REPORT ---
EXAM DESCRIPTION: CTAbdomen Pelvis W Contrast - 08/23/2021 9:30 am CLINICAL HISTORY: Abdominal pain. ABD PAIN COMPARISON: Abdomen Pelvis W Contrast dated 04/03/2018; CT ABD PELVIS W CONTRAST dated 08/03/2011 TECHNIQUE: Biphasic CT imaging of the abdomen and pelvis was performed with 100 ml non-ionic IV cont rast. All CT scans are performed using dose optimization technique as appropriate and may include automated exposure control or mA/KV adjustment according to patient size. FINDINGS: The lung bases are clear. The liver, spleen, pancreas, adrenal glands and kidneys are within normal limits. No bowel obstruction, free air, free fluid or abscess. The appendix is normal. No evidence of signi ficant lymphadenopathy. No suspicious bony findings. IUD is noted. Trace pelvic free fluid. IMPRESSION: No acute intra-abdominal or pelvic finding.
--- NOTE | 2021-08-23 09:45 | EDPHYS ---
Physician Documentation [facility] Name: Danielle Ahn Age: 26 yrs Sex: Female : 1995 Arrival Date: 08/23/2021 Time: 08:21 Bed 18 Private MD: ED Physician Ashish Hollis HPI: 08/23 08:29 This 26 yrs old Female presents to ER via Unassigned with complaints of kb Abdominal Pain. 08:29 The patient presents with abdominal pain in the lower abdomen. Onset: The kb symptoms/episode began/occurred 4 week(s) ago. The symptoms do not radiate. Associated signs and symptoms: Pertinent positives: constipation. The symptoms are described as constant, waxing/waning. Modifying factors: The symptoms are alleviated by nothing, the symptoms are aggravated by nothing. Severity of pain: At its worst the pain was moderate in the emergency department the pain is unchanged. The patient has not experienced similar symptoms in the past. The patient has not recently seen a physician. Pt reports lower abd pain that started 4 weeks ago. States the pain never goes away, but it does get better, then worse. States she has had intermittent constipation, but denies n/v/d/f/c. Historical: - Allergies: 08:29 No Known Allergies; ss - Home Meds: 08:29 None [Active]; ss - PMHx: 08:29 None; ss - PSHx: 08:29 None; ss - Immunization history:: Client reports having NOT received the Covid vaccine. - Social history:: Smoking status: Patient denies any tobacco usage or history of. ROS: 08:28 Constitutional: Negative for fever, chills, and weight loss. kb 08:28 Abdomen/GI: Positive for abdominal pain, constipation, Negative for nausea, vomiting, and diarrhea. 08:28 All other systems are negative. Exam: 08:28 Constitutional: This is a well developed, well nourished patient who is awake, alert, kb and in no acute distress. Head/Face: Normocephalic, atraumatic. ENT: Moist Mucous membranes Cardiovascular: Regular rate and rhythm with a normal S1 and S2. No gallops, murmurs, or rubs. No pulse deficits. Respiratory: Respirations even and unlabored. No increased work of breathing. Talking in full sentences Skin: Warm, dry with normal turgor. Normal color. MS/ Extremity: Pulses equal, no cyanosis. Neurovascular intact. Full, normal range of motion. Neuro: Awake and alert, GCS 15, oriented to person, place, time, and situation. Moves all extremities. Normal gait. Psych: Awake, alert, with orientation to person, place and time. Behavior, mood, and affect are within normal limits. 08:28 Abdomen/GI: Inspection: abdomen appears normal, Bowel sounds: normal, in all quadrants, Palpation: soft, in all quadrants, moderate abdominal tenderness, in the right lower quadrant and left lower quadrant. Vital Signs: 08:28 BP 132 / 63; Pulse 75; Resp 16; Pulse Ox 100% on R/A; Weight 58.97 kg; Height 5 ft. 2 ss in. (157.48 cm); Pain 3/10; 08:57 BP 112 / 58; Pulse 67; Resp 18; Pulse Ox 98% on R/A; ph 10:02 BP 118 / 59; Pulse 68; Resp 18; Temp 97.8; Pulse Ox 99% on R/A; ph 08:28 Body Mass Index 23.78 (58.97 kg, 157.48 cm) ss MDM: 08:22 Patient medically screened. kb 08:28 Data reviewed: vital signs, nurses notes. Data interpreted: Pulse oximetry: on room air kb is 100 %. Interpretation: normal. 09:44 Counseling: I had a detailed discussion with the patient and/or guardian regarding: the kb historical points, exam findings, and any diagnostic results supporting the discharge/admit diagnosis, lab results, radiology results, the need for outpatient follow up, a family practitioner, a medical historian, to return to the emergency department if symptoms worsen or persist or if there are any questions or concerns that arise at home. 08/23 08:26 Order name: CBC with Diff; Complete Time: 09:01 kb 08/23 08:26 Order name: CMP; Complete Time: 09:17 kb 08/23 08:26 Order name: Lipase; Complete Time: 09:17 kb 08/23 08:52 Order name: Urine Dipstick-Ancillary; Complete Time: 08:56 EDMS 08/23 08:56 Order name: Urine --Ancillary (enter results); Complete Time: 09:44 eb 08/23 09:17 Order name: CT Abd/Pelvis - IV Contrast Only; Complete Time: 09:44 kb 08/23 08:26 Order name: IV Saline Lock; Complete Time: 08:53 kb 08/23 08:26 Order name: Labs collected and sent; Complete Time: 08:53 kb 08/23 08:26 Order name: Urine Dipstick-Ancillary (obtain specimen); Complete Time: 08:53 kb 08/23 08:26 Order name: Urine Test (obtain specimen); Complete Time: 08:53 kb Administered Medications: 09:36 Drug: NS 0.9% 1000 ml Route: IV; Rate: 1000 ml; Site: right antecubital; ph 10:01 Follow up: Response: No adverse reaction; IV Status: Completed infusion; IV Intake: ph 500ml Disposition Summary: 08/23/21 09:45 Discharge Ordered Location: Home kb Condition: Stable kb Diagnosis - Lower abdominal pain, unspecified kb Followup: kb - With: Emergency Department - When: As needed - Reason: Worsening of condition Followup: kb - With: Private Physician - When: 2 - 3 days - Reason: Recheck today's complaints, Continuance of care, Re-evaluation by your physician Discharge Instructions: - Discharge Summary Sheet kb - Abdominal Pain, Adult, [id number] kb Forms: - Medication Reconciliation Form kb - Thank You Letter kb - Antibiotic Education kb - Prescription Opioid Use kb Prescriptions: - Diclofenac Sodium 75 mg Oral tablet,delayed release (DR/EC) - take 1 tablet by ORAL route 2 times per day As needed; 30 tablet; Refills: 0, kb Product Selection Permitted Signatures: Dispatcher [employer] Iveth Haines, Rafia Carias, RN RN Adelita Pinto RN RN ph
--- NOTE | 2021-08-23 09:45 | ER ---
Nurse's Notes [facility] Name: Danielle Ahn Age: 26 yrs Sex: Female : 1995 Arrival Date: 08/23/2021 Time: 08:21 Bed 18 Private MD: Diagnosis: Lower abdominal pain, unspecified Presentation: 08/23 08:28 Chief complaint: Patient states: lower abd pain that began 3-4 weeks ago. Has been ss continuous. Denies N/V/D. Coronavirus screen: Client denies travel out of the [place] in the last 14 days. Ebola Screen: Patient denies exposure to infectious person. Patient denies travel to an Ebola-affected area in the 21 days before illness onset. Initial Sepsis Screen: Does the patient meet any 2 criteria? No. Patient's initial sepsis screen is negative. Does the patient have a suspected source of infection? No. Patient's initial sepsis screen is negative. Risk Assessment: Do you want to hurt yourself or someone else? Patient reports no desire to harm self or others. Onset of symptoms was July 2021. 08:28 Method Of Arrival: Ambulatory ss 08:28 Acuity: EVELIO 3 ss Triage Assessment: 08:30 General: Appears in no apparent distress. comfortable, Behavior is calm, cooperative. ss Pain: Complains of pain in right lower quadrant and left lower quadrant Pain currently is 3 out of 10 on a pain scale. Neuro: Level of Consciousness is awake, alert, obeys commands, Oriented to person, place, time, situation. Respiratory: Respiratory effort is even, unlabored. GI: Patient currently denies diarrhea, nausea, vomiting. Historical: - Allergies: 08:29 No Known Allergies; ss - Home Meds: 08:29 None [Active]; ss - PMHx: 08:29 None; ss - PSHx: 08:29 None; ss - Immunization history:: Client reports having NOT received the Covid vaccine. - Social history:: Smoking status: Patient denies any tobacco usage or history of. Screenin:53 Abuse screen: Denies threats or abuse. Denies injuries from another. Nutritional ph screening: No deficits noted. Tuberculosis screening: No symptoms or risk factors identified. Fall Risk None identified. Assessment: 08:54 General: Appears in no apparent distress. comfortable, slender, well groomed, Behavior ph is calm, cooperative, appropriate for age, Denies fever, feeling ill. Pain: Complains of pain in right lower quadrant and left lower quadrant. Neuro: Level of Consciousness is awake, alert, obeys commands, Oriented to person, place, time, situation. Cardiovascular: Capillary refill < 3 seconds in bilateral fingers Patient's skin is warm and dry. Respiratory: Airway is patent Respiratory effort is even, unlabored, Respiratory pattern is regular, symmetrical. GI: Abdomen is non-distended, Abd is soft and non tender X 4 quads. Reports lower abdominal pain, intermittent constipation and diarrhea. : Denies burning with urination, urinary frequency. Derm: Skin is intact, is healthy with good turgor, Skin is pink, warm \T\ dry. Musculoskeletal: Circulation, motion, and sensation intact. Range of motion: intact in all extremities. 10:01 Reassessment: Patient appears in no apparent distress at this time. Patient and/or ph family updated on plan of care and expected duration. Pain level reassessed. Patient is alert, oriented x 3, equal unlabored respirations, skin warm/dry/pink. Vital Signs: 08:28 BP 132 / 63; Pulse 75; Resp 16; Pulse Ox 100% on R/A; Weight 58.97 kg; Height 5 ft. 2 ss in. (157.48 cm); Pain 3/10; 08:57 BP 112 / 58; Pulse 67; Resp 18; Pulse Ox 98% on R/A; ph 10:02 BP 118 / 59; Pulse 68; Resp 18; Temp 97.8; Pulse Ox 99% on R/A; ph 08:28 Body Mass Index 23.78 (58.97 kg, 157.48 cm) ED Course: 08:21 Patient arrived in ED. mr 08:22 Vinh Nickistin, ZO is PHCP. kb 08:22 Ashish Hollis MD is Attending Physician. kb 08:29 Triage completed. ss 08:29 Arm band placed on right wrist. ss 08:39 Adelita Pinto, COLETTE is Primary Nurse. ph 08:45 Initial lab(s) drawn, by me, sent to lab. Inserted saline lock: 20 gauge in right ph antecubital area, using aseptic technique. Blood collected. 08:54 Patient has correct armband on for positive identification. Placed in gown. Bed in low ph position. Call light in reach. Side rails up X 1. Pulse ox on. NIBP on. Door closed. Noise minimized. Warm blanket given. 09:32 CT Abd/Pelvis - IV Contrast Only In Process Unspecified. EDMS 10:02 No provider procedures requiring assistance completed. IV discontinued, intact, ph bleeding controlled, No redness/swelling at site. Pressure dressing applied. Administered Medications: 09:36 Drug: NS 0.9% 1000 ml Route: IV; Rate: 1000 ml; Site: right antecubital; ph 10:01 Follow up: Response: No adverse reaction; IV Status: Completed infusion; IV Intake: ph 500ml Intake: 10:01 IV: 500ml; Total: 500ml. ph Outcome: :45 Discharge ordered by . kb 10:07 Discharged to home ambulatory. ph 10:07 Condition: good 10:07 Discharge instructions given to patient, Instructed on discharge instructions, follow up and referral plans. medication usage, Demonstrated understanding of instructions, follow-up care, medications, Prescriptions given X 1. 10:08 Patient left the ED. ph Signatures: Dispatcher [employer] EDMS Iveth Nick, ZO MARTINEZP-Irais Conrad Shelby, COLETTE RN Adelita Carroll RN RN ph
[2021-08-23 11:43] VITALS: BP 118/59; TEMP 97.8; O2SAT 99
== END 2021-08-23 10:08 | disposition home or self-care (01) ==
LOC: ER 08:17
DX: R10.30 Lower abdominal pain, unspecified (principal)
CPT/HCPCS: 85025; 36415; 81025; 81003; 83690; 80053; 74177; 99284; Q9967; J7030